=== PATIENT | female | born 1965 | race Two or more races ===

== ENCOUNTER 2023-09-26 22:49 | Emergency (ER) | payer SELFPAY ==
[~2023-09-26] VITALS: Ht 152.4 cm; Wt 50.0 kg
[2023-09-26 23:04] VITALS: TEMP 98
[2023-09-26 23:39] LABS: APPEARANCE,URINE CLEAR (CLEAR); BILIRUBIN,URINE NEGATIVE (NEGATIVE); COLOR,URINE LIGHT YELLOW (YELLOW); GLUCOSE, URINE (UA) NEGATIVE (NEGATIVE); KETONES,URINE 40-60 mg/dL (NEGATIVE); LEUKOCYTE ESTERASE ,URINE NEGATIVE (NEGATIVE); NITRATE,URINE NEGATIVE (NEGATIVE); OCCULT BLOOD,URINE MODERATE (NEGATIVE); PROTEIN,URINE TRACE mg/dL (NEGATIVE); SPECIFIC GRAVITIY, URINE 1.035 (1.003-1.030); UROBILINOGEN,URINE <=1.0 mg/dL (<=1.0)
[2023-09-27 00:03] LABS: BASOPHILS % (AUTO) 0.5 % (0.0-2.0); EOSINOPHILS % (AUTO) 1.7 % (1.0-6.0); HEMATOCRIT 39.2 % (36-46); HEMOGLOBIN 13.6 g/dL (12.0-16.0); LYMPHOCYTES # (AUTO) 1.1 K/uL (1.0-4.8); LYMPHOCYTES % (AUTO) 22.5 % (22.0-44.0); MEAN CORPUSCULAR HEMOGLOBIN 31.6 pg (26.0-34.0); MEAN CORPUSCULAR HGB CONC 34.6 G/dL (31.0-37.0); MEAN CORPUSCULAR VOLUME 92 fL (80-100); MONOCYTES # (AUTO) 0.3 K/uL (0.1-1.0); MONOCYTES % (AUTO) 6.8 % (2.0-9.0); NEUTROPHILS # (AUTO) 3.2 K/uL (1.8-7.7); NEUTROPHILS % (AUTO) 68.5 % (40.0-70.0); PLATELET COUNT (AUTO) 249 K/uL (150-450); RED BLOOD CELL COUNT(AUTO) 4.29 MIL/uL (4.00-5.20); RED CELL DISTRIBUTION WIDTH 13.1 % (11.5-14.5); WHITE BLOOD COUNT (AUTO) 4.7 K/uL (4.5-11.0)
[2023-09-27 00:21] LABS: ANION GAP 5 mmol/L (8-16); CALCIUM, TOTAL 8.6 mg/dL (8.8-10.5); CARBON DIOXIDE 29 mmol/L (22-29); CHLORIDE 101 mmol/L (98-107); CREATININE 0.73 mg/dL (0.60-1.30); GLOMERULAR FILTR. RATE CALC > 60 mL/min (>60); GLUCOSE,RANDOM 106 mg/dL (70-110); POTASSIUM 3.7 mmol/L (3.5-5.1); SODIUM SERUM 135 mmol/L (136-145); UREA NITROGEN, BLOOD 18 mg/dL (7-18)
[2023-09-27 00:26] LABS: TROPONIN I-HIGH SENSITIVITY 7 ng/L (<51)
[2023-09-27 00:31] LABS: ALANINE AMINOTRANSFERASE 25 U/L (12-78); ALBUMIN 3.7 g/dL (3.4-5.0); ALKALINE PHOSPHATASE 86 U/L (46-116); ASPARTATE AMINOTRANSFERASE 29 U/L (15-37); BILIRUBIN,TOTAL 0.3 mg/dL (0.1-1.0); LIPASE 30 U/L (16-77); TOTAL PROTEIN, SERUM 7.8 g/dL (6.4-8.2)
[2023-09-27 00:32] LABS: BACTERIA,URINE None Seen /HPF (None Seen); SQUAMOUS EPITHELIAL CELL,UR None Seen /LPF (None Seen); WBC,URINE None Seen /HPF (0-5)
[2023-09-27] MEDS ORDERED: MORPHINE SULFATE 2 MG/ML SYRINGE IVP ONE (02:30)
[2023-09-27] MEDS ORDERED: METOCLOPRAMIDE HCL 5 MG/ML 2 ML VIAL IVP ONE (02:30)
[2023-09-27] MEDS ORDERED: SODIUM CHLORIDE 0.9% 1,000 ML IV ONE (02:30)
[2023-09-27] MEDS ORDERED: FAMOTIDINE 20 MG/2 ML VIAL IVP ONE (04:15)
[2023-09-27] MEDS ORDERED: FAMO20 PO (05:32)
[2023-09-27 05:39] VITALS: BP 115/75; PULSE 77; RESP 16
== END 2023-09-27 05:46 | disposition home or self-care (01) ==
LOC: EMS 22:54
DX: K29.70 Gastritis, unspecified, without bleeding (principal); R10.13 Epigastric pain; K21.9 Gastro-esophageal reflux disease without esophagitis
CPT/HCPCS: 99285; 80053; 81001; 83690; 84484; 85025; 36415; 93005; 96374; 76705; 96375; 74022; J3490; J2765; J2270; J7030